=== PATIENT | female | born 1940 | race Caucasian/White ===

== ENCOUNTER 2018-05-21 07:42 | Outpatient (CLI) | payer OTHER ==
[~2018-05-21 07:42] MED LIST: GABAPENTIN300 MG; HUMALOG100 U/ML SQ; HYZAAR 100-121 UDTAB; LANTUS100 U/ML; PNEU16DI2 IJ; SINGULAIR4 MG PO; VERAPAMIL ER180 MG; [UNRECOGNIZED DRUG - OTHER]
== END 2018-05-21 08:00 | disposition home or self-care (01) ==
LOC: NUCLEAR 07:42
DX: I73.9 Peripheral vascular disease, unspecified (principal)